=== PATIENT | female | born 1930 ===

== ENCOUNTER 2022-04-05 13:31 | Emergency (ER) | payer MEDICARE, OTHER ==
[2022-04-05 13:41] VITALS: TEMP 97.6
[2022-04-05] MEDS ORDERED: CATAPRES 0.1MG0.1 MG (14:12)
[2022-04-05] MEDS ORDERED: ALDACTONE50 MG (14:13)
[2022-04-05] MEDS ORDERED: JANUVIA50 MG (14:13)
[2022-04-05] MEDS ORDERED: TOPROL XL 25MG25 MG (14:13)
[2022-04-05] MEDS ORDERED: AMARYL1 MG (14:14)
[2022-04-05] MEDS ORDERED: ASPIRIN E.C. 8181 MG (14:14)
[2022-04-05] MEDS ORDERED: XANAX 0.5MG0.5 MG (14:15)
[2022-04-05] MEDS ORDERED: LIPITOR20 MG (14:15)
[2022-04-05 14:20] LABS: COLLECTION METHOD CLEAN CATCH
[2022-04-05 14:25] LABS: BASO % 0.4 % (0.0-2.0); EOS # 0.1 K/mm3 (0.0-0.7); EOS % 1.2 % (0.0-4.0); GRAN # 5.2 K/mm3 (1.4-6.5); GRAN % 71.5 % (42.2-75.2); HEMATOCRIT 40.2 % (37.0-47.0); HEMOGLOBIN 13.3 g/dl (12.5-16.0); LYMPH # 1.3 K/mm3 (1.2-3.4); LYMPH % 18.2 % (20.0-51.0); MEAN CELL VOLUME 86 fl (80.0-100.0); MEAN CORPUSCULAR HEMOGLOBIN 29 pg (27-31); MEAN CORPUSCULAR HGB CONC 33 g/dl (33.0-37.0); MEAN PLATELET VOLUME 10.2 fl (7.4-10.4); MONO # 0.6 K/mm3 (0.1-0.6); MONO % 8.4 % (1.7-9.3); PLATELET COUNT 225 K/mm3 (130-400); RED BLOOD COUNT 4.67 M/mm3 (4.10-5.30); REDCELL DISTRIBUTION WIDTH-CV 14.3 % (11.5-14.5)
[2022-04-05 14:39] LABS: ALANINE AMINOTRANSFERASE 14 U/L (0-55); ALBUMIN 3.7 gm/dL (3.4-4.8); ALKALINE PHOSPHATASE 54 U/L (40-150); ANION GAP 11 mmol/L (7-16); AST,SGOT 16 U/L (5-34); BILIRUBIN,TOTAL 0.3 mg/dL (0.2-1.2); BLOOD UREA NITROGEN 17 mg/dL (10-20); C-REACTIVE PROTEIN 0.55 mg/dL (0.00-0.50); CALCIUM 9.4 mg/dL (8.4-10.2); CARBON DIOXIDE 24 mmol/L (23-31); CHLORIDE 102 mmol/L (98-107); CREATININE, serum 0.82 mg/dL (0.57-1.11); GLUCOSE 237 mg/dL (70-99); POTASSIUM 4.4 mmol/L (3.5-4.5); SODIUM 137 mmol/L (136-145); TOTAL PROTEIN 6.8 gm/dL (6.2-8.1)
[2022-04-05 14:46] LABS: ERYTHROCYTE SEDIMENTATION RATE 12 mm/hr (0-30); TROPONIN-I < 0.010 ng/mL (0.00-0.033)
[2022-04-05 14:52] LABS: PH 6 (5-8); SQUAMOUS EPITHELIAL None Seen /hpf (0-10); URINE APPEARANCE Clear (CLEAR/HAZY); URINE BACTERIA Rare /hpf (NONE SEEN); URINE BILIRUBIN Negative (NEGATIVE); URINE BLOOD Negative (NEGATIVE); URINE COLOR Yellow (YELLOW); URINE GLUCOSE Negative (NEGATIVE); URINE KETONE Negative (NEGATIVE); URINE LEUKOCYTE ESTERASE Negative (NEGATIVE); URINE NITRATE Negative (NEGATIVE); URINE PROTEIN(semi-quant) Negative (NEGATIVE); URINE UROBILINOGEN Negative (NEGATIVE)
[2022-04-05 15:19] VITALS: BP 93/44; PULSE 56
--- NOTE | 2022-04-05 16:15 | NUR ---
ASHLEY responded to consult. The patient already discharged from the ED this afternoon. She presented for stumbling around and high blood pressure. The ED note reports that the patient was not making sense and that she was difficult to track. She reports that she thinks she had 5 TIAs this morning. She refused an IV or to have any angiographic studies. She refused an MRI and further testing for TIA workup. She discharged from the emergency department. ED staff noted that the patient also voiced she needs assistance with needing help setting up her specialist appointments and transportation to appointments to [place]. ASHLEY attempted to contact the patient with the phone number on file. SW left her a voicemail. Per EMR, the patient's PCP is Dr. Annalisa Meza. ASHLEY attempted to contact ADRIANA Sandersbobbin drier, at [facility], [place] to follow up about the patient. ASHLEY left her a voicemail. ASHLEY made an APS report due to concerns. APS report intake ID#[id number].
== END 2022-04-05 15:30 | disposition home or self-care (01) ==
LOC: COL.ER 13:31
PROVIDERS: Emergency Medicine
DX: R26.9 Unspecified abnormalities of gait and mobility (principal); M54.9 Dorsalgia, unspecified; R51.9 Headache, unspecified